=== PATIENT | female | born 2000 | race Two or more races ===

== ENCOUNTER → 2022-07-03 | Emergency (ER) | payer SELFPAY ==
[~2022-07-03] VITALS: Ht 152.4 cm; Wt 55.0 kg
[~2022-07-03] MED LIST: ONDANSETRON HCL 4MG/2ML INJ IV NR; ONDANSETRON HCL 4MG/2ML INJ IV STA; SODIUM CHLORIDE 0.9% 1,000 ML IV ONE
[2022-07-03 14:36] VITALS: BP 99/60
[2022-07-03 15:38] LABS: BASOPHILS % 0.1 % (0.0-2.0); HEMATOCRIT. 34.6 % (36.0-48.0); HEMOGLOBIN. 11.6 g/dL (12.0-16.0); LYMPHOCYTES % 15.3 % (20.0-50.0); MEAN CORPUSCULAR HEMOGLOBIN 33.2 pg (28.0-32.0); MEAN CORPUSCULAR VOLUME 98.6 fL (81.0-99.0); MEAN PLATELET VOLUME 7.2 fl (7.4-10.4); MONOCYTES % 9.3 % (2.0-8.0); NEUTROPHILS % 75.3 % (40.0-76.0); PLATELET 317 x1000/uL (130-400); RED BLOOD CELL COUNT 3.51 mill/uL (4.2-5.4); RED CELL DISTRIBUTION WIDTH 13.4 % (11.6-14.6)
[2022-07-03 15:41] LABS: CHLORIDE 109 mEq/L (98-107)
[2022-07-03 15:51] LABS: CREATINE KINASE 104 IU/L (26-192); ETHANOL BLOOD < 10 mg/dL
== END ==
LOC: ER 14:30
DX: F10.10 Alcohol abuse, uncomplicated (principal); Y90.0 Blood alcohol level of less than 20 mg/100 ml
CPT/HCPCS: 36415; 70360; 71045; 80053; 80320; 82140; 82550; 83690; 85025; 96361; 96374; 99284; J2405; J7030; Z7610; G0480